=== PATIENT | male | born 1945 | race Caucasian/White ===

== ENCOUNTER 2019-09-14 16:54 | Emergency (ER) | payer OTHER, MEDICARE ==
[~2019-09-14] VITALS: Ht 177.8 cm; Wt 102.1 kg
[~2019-09-14 16:54] MED LIST: ABAT250V; ALBU90OI INH; AMLO5 PO; ATEN25 PO; ATOR10 PO; Albuterol2.5 MG/0.5; Artificials Tea30 ML BOTHEYES; BUDE6HFA INH; CARV25 PO; CEPH500 PO; CLOP75 PO; FURO20 PO; GENTEAL TEARS 015 ML BOTHEYES; GLIP10 PO; HYDACE5 PO; HYDCHL12.5 PO; HYDR1TAB94 PO; INSU100I6 SC; INSUASPI SC; INSULANPEN SC; ISOMON20 PO; ISOMON60ER PO; Isosorbide Mono60 MG PO; LEVSOD75 PO; LOSA50 PO; LOSHYD100; LOSHYD100 PO; METF500 PO; METF500C PO; METO25 PO; NITR.4SL SL; PANT40 PO; PRAV20 PO; Pantoprazole So40 MG PO; SIMV80 PO; SODIUM FLUORIDE; TERA5 PO; TIOTROPIUM PO; VENL75 PO; VENL75ER PO; [UNRECOGNIZED DRUG - OTHER] PO
[2019-09-14 17:25] LABS: BASOPHILS ABSOLUTE AUTO 0.07 K/mm3 (0.00-0.23); BASOPHILS PERCENT AUTO 1 % (0-2); EOSINOPHILS ABSOLUTE AUTO 0.24 K/mm3 (0.00-0.68); EOSINOPHILS PERCENT AUTO 3 % (0-6); Hematocrit 42.4 % (37.0-53.0); Hemoglobin 13.7 g/dL (13.5-17.5); IMMATURE GRAN ABSOLUTE AUTO 0.11 K/mm3 (0.00-0.10); IMMATURE GRAN PERCENT AUTO 1 % (0-1); LYMPHOCYTES ABSOLUTE AUTO 1.91 K/mm3 (0.84-5.20); LYMPHOCYTES PERCENT AUTO 24 % (21-46); MONOCYTES ABSOLUTE AUTO 0.68 K/mm3 (0.16-1.47); MONOCYTES PERCENT AUTO 9 % (4-13); Mean Corpuscular HGB 30.4 pg (26.0-34.0); Mean Corpuscular HGB Conc 32.3 g/dL (31.5-36.5); Mean Corpuscular Volume 94 fL (80-100); Mean Platelet Volume 9.9 fL (9.1-12.4); NEUTROPHILS ABSOLUTE AUTO 5.03 K/mm3 (1.96-9.15); NEUTROPHILS PERCENT AUTO 62 % (41-73); Platelet Count 233 K/mm3 (150-400); RDW Coefficient Variation 12.7 % (11.7-14.2); RDW Standard Deviation 44.1 fL (35.1-46.3); Red Blood Cell Count 4.51 M/mm3 (4.30-5.90); White Blood Cell Count 8.04 K/mm3 (4.00-11.30)
[2019-09-14 17:46] LABS: Alanine Aminotransfer (ALT/SGP 22 U/L (12-78); Albumin, Blood 3.4 g/dL (3.4-5.0); Albumin/Globulin Ratio 0.9 (0.8-1.8); Alk Phos 115 U/L (50-136); Anion Gap 8 mmol/L (6-16); Aspartate Aminotrans (AST/SGOT 13 U/L (12-37); Bilirubin, Total 0.2 mg/dL (0.1-1.0); Blood Urea Nitrogen 25 mg/dL (8-24); Bun/Creatinine Ratio 21.6 (12.0-20.0); CO2, Blood 23 mmol/L (21-32); Calcium, Blood 8.9 mg/dL (8.5-10.1); Chloride, Blood 107 mmol/L (98-108); Creatinine, Blood 1.16 mg/dL (0.60-1.20); Globulin, Blood 3.7 g/dL (2.2-4.0); Glomerular Filtration Rate >60 (60-); Glucose, Blood 144 mg/dL (70-99); Potassium, Blood 4.3 mmol/L (3.5-5.5); Sodium, Blood 138 mmol/L (136-145); Total Protein, Blood 7.1 g/dL (6.4-8.2); Troponin I <0.015 ng/mL (0.000-0.040)
[2019-09-14 18:22] LABS: Source, Urine Clean Catch
[2019-09-14 18:25] LABS: Bilirubin, Urine Neg (Neg); Blood, Urine Neg (Neg); Glucose Qualitative, Urine 4+ (Neg); Ketones, Urine Neg (Neg); Leukocyte Esterase, Urine Neg (Neg); Nitrite, Urine Neg (Neg); Protein, Urine Neg (Neg); Specific Gravity, Urine 1.015 (1.003-1.022); Urobilinogen, Urine NORM (Normal)
[2019-09-14 18:31] LABS: Appearance, Urine Clear (Clear); Color, Urine Yellow (P-Yellow)
[2019-09-14 19:08] LABS: Base Excess Venous -5.6 mmol/L; Bicarbonate Venous 19.7 mmol/L (24.0-30.0); PCO2 Venous 43.3 mmHg (38-42); PO2 Venous 52.3 mmHg (38-42); pH Blood Venous 7.29 (7.34-7.37)
== END 2019-09-14 19:39 | disposition home or self-care (01) ==
LOC: ER 16:54
PROVIDERS: Nurse Practitioner; Physician Assistant
DX: J44.1 Chronic obstructive pulmonary disease with (acute) exacerbation (principal); I10 Essential (primary) hypertension; E11.9 Type 2 diabetes mellitus without complications; I25.10 Atherosclerotic heart disease of native coronary artery without angina pectoris; K21.9 Gastro-esophageal reflux disease without esophagitis; Z88.6 Allergy status to analgesic agent; Z88.8 Allergy status to other drugs, medicaments and biological substances; Z79.899 Other long term (current) drug therapy; Z79.4 Long term (current) use of insulin; Z87.891 Personal history of nicotine dependence
CPT/HCPCS: 71045; 80053; 81003; 82803; 84484; 85025; 93005; 93010; 99285-25

== ENCOUNTER 2022-09-21 14:25 | Day surgery (SDC) | payer OTHER ==
[~2022-09-21] VITALS: Ht 177.8 cm; Wt 86.8 kg
[~2022-09-21 14:25] MED LIST changes: +ATOR20 PO; +BASAGLAR K100 UNIT/3 SC; +DOCU100 PO; +METO50ER PO; +MOME220I INH; +ROSU5 PO; +STIOLTO RESPIMAT4 G1 INH; +SYNJARDY 12.5-1 EAC3 PO; +VISBIOME 112.51 EACH PO
--- NOTE | 2022-09-21 14:30 | NUR ---
09/21/22 1430 Nelly Fang PT CAME FROM IN PATIENT STATUS HE WENT THERE TO GET PREPPED, PT ARRIVED WITH AN IV ALREADY IN PLACE, WILL D/C IT PRIOR TO D/C FROM [facility].
[2022-09-21] MEDS ORDERED: METF500 (14:54)
[2022-09-21] MEDS ORDERED: Nitroglycerin1 EAC3 (14:55)
[2022-09-21] MEDS ORDERED: STRIVERDI RESPIM4 G1 (14:55)
--- NOTE | 2022-09-21 15:42 | NUR ---
09/21/22 1542 Nelly Fang USED IN BOTH UPPER AND LOWER SCOPES.
== END 2022-09-21 14:59 | disposition home or self-care (01) ==
LOC: ORSCSDS 14:25
PROVIDERS: Internal Medicine Gastroenterology
PROC: 0DBH8ZX Excision of Cecum, Via Natural or Artificial Opening Endoscopic, Diagnostic (ICD-10-PCS; principal; 2022-09-21 14:45)
PROC: 0D758ZZ Dilation of Esophagus, Via Natural or Artificial Opening Endoscopic (ICD-10-PCS; principal; 2022-09-21 14:45)
PROC: 0DBM8ZX Excision of Descending Colon, Via Natural or Artificial Opening Endoscopic, Diagnostic (ICD-10-PCS; principal; 2022-09-21 14:45)
PROC: 0DBN8ZX Excision of Sigmoid Colon, Via Natural or Artificial Opening Endoscopic, Diagnostic (ICD-10-PCS; principal; 2022-09-21 14:45)
PROC: 0DBK8ZX Excision of Ascending Colon, Via Natural or Artificial Opening Endoscopic, Diagnostic (ICD-10-PCS; principal; 2022-09-21 14:45)
PROC: 0DBL8ZX Excision of Transverse Colon, Via Natural or Artificial Opening Endoscopic, Diagnostic (ICD-10-PCS; principal; 2022-09-21 14:45)
DX: K21.9 Gastro-esophageal reflux disease without esophagitis (principal); K59.00 Constipation, unspecified; D12.4 Benign neoplasm of descending colon; D12.3 Benign neoplasm of transverse colon; D12.0 Benign neoplasm of cecum; D12.2 Benign neoplasm of ascending colon; K63.5 Polyp of colon; R63.4 Abnormal weight loss; K22.2 Esophageal obstruction; Z80.0 Family history of malignant neoplasm of digestive organs; K64.8 Other hemorrhoids; I10 Essential (primary) hypertension; E11.9 Type 2 diabetes mellitus without complications; J44.9 Chronic obstructive pulmonary disease, unspecified; Z87.891 Personal history of nicotine dependence; Z99.81 Dependence on supplemental oxygen; I25.2 Old myocardial infarction; I42.9 Cardiomyopathy, unspecified; Z79.02 Long term (current) use of antithrombotics/antiplatelets; Z79.84 Long term (current) use of oral hypoglycemic drugs; Z79.899 Other long term (current) drug therapy
CPT/HCPCS: 82947; C1726; J0330; J0461; J2001; J2405; J2704; J7120; Q9968

== ENCOUNTER 2025-04-22 18:47 | Emergency (ER) | payer OTHER ==
[~2025-04-22] VITALS: Ht 182.9 cm; Wt 90.7 kg
[~2025-04-22 18:47] MED LIST changes: +Bactrim Ds Tab1 EACH PO; +CIPR500 PO; +METF500; +Nitroglycerin1 EAC3; +Pyridium100 MG
[2025-04-22 18:58] VITALS: BP 100/83
== END 2025-04-22 20:10 | disposition home or self-care (01) ==
LOC: ER 18:47
DX: F10.129 Alcohol abuse with intoxication, unspecified (principal); Z79.01 Long term (current) use of anticoagulants; Z79.899 Other long term (current) drug therapy; I10 Essential (primary) hypertension; E11.9 Type 2 diabetes mellitus without complications; K21.9 Gastro-esophageal reflux disease without esophagitis; Z87.891 Personal history of nicotine dependence
CPT/HCPCS: 99284